=== PATIENT | male | born 1975 | race Caucasian/White ===

== ENCOUNTER 2024-08-15 23:21 | Emergency (ER) | payer MEDICAID, OTHER ==
[~2024-08-15] VITALS: Ht 188 cm; Wt 108.9 kg
[2024-08-15] MEDS: IV NORMAL SALINE 1000 ML BAG IV ONE (23:35)
[2024-08-15 23:55] LABS: MAGNESIUM 2.4 mg/dL (1.8-2.4)
[2024-08-16 00:03] LABS: BASOPHILS % (AUTO) 0.4 % (0.0-2.0); EOSINOPHILS # (AUTO) 0.1 K/uL (0.0-0.7); HEMATOCRIT 43.8 % (36.7-47.1); HEMOGLOBIN 15.3 g/dL (12.5-16.3); LYMPHOCYTES # (AUTO) 1.7 K/uL (0.8-4.8); LYMPHOCYTES % (AUTO) 18.8 % (20.5-51.5); MEAN CORPUSCULAR HEMOGLOBIN 32.3 uug (23.8-33.4); MEAN CORPUSCULAR HGB CONC 35 g/dL (32.5-36.3); MEAN CORPUSCULAR VOLUME 92.3 fL (73.0-96.2); MONOCYTES # (AUTO) 0.3 K/uL (0.1-1.30); MONOCYTES % (AUTO) 3.5 % (0.0-11.0); NEUTROPHILS % (AUTO) 76.3 % (38.5-71.5); PLATELET COUNT (AUTO) 193 K/uL (152-348); RED BLOOD CELL COUNT(AUTO) 4.74 MIL/uL (4.06-5.63); RED CELL DISTRIBUTION WIDTH 12.6 % (12.1-16.2); WHITE BLOOD COUNT (AUTO) 9.1 K/uL (3.6-10.2)
[2024-08-16 00:05] LABS: ALANINE AMINOTRANSFERASE 42 U/L (16-63); ALBUMIN 3.8 g/dL (3.4-5.0); ALKALINE PHOSPHATASE 78 U/L (50-136); ASPARTATE AMINOTRANSFERASE 28 U/L (15-37); BILIRUBIN,DIRECT 0.1 mg/dL (0.0-0.2); BILIRUBIN,TOTAL 0.3 mg/dL (0.2-1.0); CALCIUM 8.7 mg/dL (8.5-10.1); CARBON DIOXIDE 20 mmol/L (21-32); CHLORIDE 101 mmol/L (98-107); CREATININE 1.3 mg/dL (0.6-1.3); GLUCOSE 228 mg/dL (74-106); POTASSIUM 3.4 mmol/L (3.5-5.1); SODIUM SERUM 137 mmol/L (136-145); TOTAL PROTEIN, SERUM 7.6 g/dL (6.4-8.2); UREA NITROGEN, BLOOD 13 mg/dL (7-18)
[2024-08-16 00:15] LABS: LACTIC ACID 4.6 mmol/L (0.4-2.0)
[2024-08-16] MEDS: IV NORMAL SALINE 500 ML BAG IV ONE (00:26)
[2024-08-16] MEDS ORDERED: TDAP DIPH,PERTUSS,TET VAC/PF 0.5 ML DISP.SYRIN IM ONE (01:14)
[2024-08-16] MEDS: NICOTINE 21 MG/24HR PATCH TD STA (01:18)
[2024-08-16] MEDS: TDAP DIPH,PERTUSS,TET VAC/PF 0.5 ML DISP.SYRIN IM ONE (01:19)
[2024-08-16 02:04] VITALS: BP 137/89; O2SAT 100
== END 2024-08-16 02:06 | disposition home or self-care (01) ==
LOC: ER 23:26
DX: S01.511A Laceration without foreign body of lip, initial encounter (principal); S00.12XA Contusion of left eyelid and periocular area, initial encounter; R00.0 Tachycardia, unspecified; I10 Essential (primary) hypertension; E11.9 Type 2 diabetes mellitus without complications; Z79.84 Long term (current) use of oral hypoglycemic drugs; Y04.0XXA Assault by unarmed brawl or fight, initial encounter; Y93.89 Activity, other specified; Y92.89 Other specified places as the place of occurrence of the external cause; Y99.8 Other external cause status
CPT/HCPCS: 36415; 70450; 70486; 71045; 83605; 83735; 84484; 85025; 90715; A4606; A4663; G0480; J7040